=== PATIENT | female | born 1945 | race African-American/Black ===

== ENCOUNTER 2018-02-05 23:16 | Observation (INO) | payer MEDICARE ==
--- NOTE | 2018-02-06 00:40 | PDOC.FPRHP ---
- History of Present Illness Chief Complaint: Chest Pain History of Present Illness: Patient presents with left sided chest pain that began at 2pm this afternoon while driving and eating pork rinds from a gas station along with some chocolate with a lot of peanuts. She was flexing her left arm multiple times to relieve her acid reflux caused by this food. Chest pain left sided and under left breast. Worse with movement, unable to lay down on left side. Alleviated by staying still. Associated with nausea and vomiting multiple times in ED which has improved with zofran. Never had this chest pain before. Denies SOB, palpitations, diarrhea, or current CP. ED Course: GI cocktail, aspirin, zofran - Allergies/Adverse Reactions Allergies Allergy/AdvReac Type Severity Reaction Status Date / Time No Known Drug Allergies Allergy Verified 02/06/18 01:13 - Home Medications Medication Instructions Recorded Confirmed Type Acetaminophen [Tylenol Regular 650 mg PO Q4H PRN tab 02/06/18 Rx Strength] Amlodipine [Norvasc] 5 mg PO DAILY #30 tab 02/06/18 Rx Hydrochlorothiazide 12.5 mg PO DAILY #30 tab 02/06/18 Rx Pantoprazole [Protonix] 40 mg PO DAILY #30 tab 02/06/18 Rx - History PMHx:GERD PSHx: Hysterectomy 1997 FHx: mom- HTN Social: Denies tobacco, alcohol, drug use - Review of Systems General: denies: weight/appetite/sleep changes, fatigue Eyes: denies: eye pain, vision changes Respiratory: denies: cough, shortness of breath Cardiovascular: reports: chest pain. denies: palpitation, edema Gastrointestinal: reports: nausea, vomiting, abdominal pain. denies: diarrhea, constipation Genitourinary: denies: incontinence, dysuria Skin: denies: rashes, lesions Musculoskeletal: reports: pain (L sided chest), tenderness Neurological: denies: syncope, weakness - Vital signs BP: 187/90 HR: 98 RR: 17 Tmax: 98.9 Pox: 97% on RA Wt: 103 kg - Physical Exam Constitutional: NAD, well developed (obese) HEENT: normocephalic and atraumatic, grossly normal hearing, normal nasal mucosa , MMM, oropharynx clear Neck: FROM, trachea midline Chest: other (L sternal border and L lateral ribs TTP) Heart: RRR, normal S1/S2, no edema Lungs: CTAB, no respiratory distress, no rales/rhonchi, no wheezing Abdomen: soft, bowel sounds present, no masses/distention, other (lower abdomen slightly TTP) Musculoskeletal: normal structure, normal tone Neurological: no focal deficit Skin: no rash/lesions, good turgor, capillary refill <2 seconds Heme/Lymphatic: no unusual bruising or bleeding Psychiatric: normal mood and affect FMR H&P: Results - Labs Result Diagrams: 02/06/18 03:21 FMR H&P: A/P - Problem List (1) Atypical chest pain Current Visit: Yes Status: Acute Code(s): R07.89 - OTHER CHEST PAIN (2) Hypertensive urgency Current Visit: Yes Status: Acute Code(s): I16.0 - HYPERTENSIVE URGENCY (3) GERD (gastroesophageal reflux disease) Current Visit: Yes Status: Acute Code(s): K21.9 - GASTRO-ESOPHAGEAL REFLUX DISEASE WITHOUT ESOPHAGITIS - Plan 72 yo F presents with PMH of GERD presents with CC of chest pain, N/V Atypical chest pain - GERD vs MSK pain more likely than cardiac etiology at this time. Pain reproducible with palpation/movement. - no cardiac history, HEART score 3 (age and risk factor) - given ASA in ED. Not given nitro. - troponin neg x2. will trend one more. No EKG changes - Lipids, TSH in am - plan for pharmacologic stress test in am - will hold nsaids at this time for pt's MSK pain. Tylenol prn. Hypertensive urgency - BPs 187/90 on exam. Have been consistently in that range in ED. Nurse reported that upon arrival to floor pt's BP was 240s after activity but quickly decreased back to 180s. No hx of HTN. - considering pulse in 50s and plan for stress test tomorrow, will not give BB - hydralazine prn SBP > 180 - no sign of end organ damage, patient asymptomatic - will repeat BMP in am GERD - pt has hx of GERD - given GI cocktail in [facility], zofran in our ED - zofran prn nausea - protonix Diet: NPO after midnight Ppx: not indicated at this time Dispo: admit to telemetry for observation FMR H&P: Upper Level - Pertinent history 72 yr old AAF presents to outside ER with c/o chest pain. States it started this afternoon around 3-4 pm. She had been driving to [place] to molded goods spot pick[place] her sister. On the way, she ate pork rinds and chocolate candy with peanuts which she thinks flared up her acid reflux as evidenced by left sided pain that was sharp. She then started flexing her LUE and left denson muscles because she has been told this will help relieve gas. She thinks the pain worsened after this and thinks her pain is secondary to sore muscles. In the ER, she began having vomiting. After zofran, improved. She does not note high BP on any of her visits to PCP. Did have annual exam 2 months ago. - Pertinent findings Possible ST depression and new t wave inversion on EKG in lead 3, no ST elevation. Sinus bradycardia, no heart block PE: Gen: NAD, resting in bed Chest: Tender to palpation along sternum stating pain is reproduced Cardiac: RRR, 2/6 systolic murmur in LUSB Lungs: CTAB, no wheezes, rhales, rhonchi - Plan Date/Time: 02/06/18 0040 I, [Ashlee Kerr], have evaluated this patient and agree with findings/plan as outlined by pr internship resident. Pertinent changes/additions are listed here. A/P 72 yr old female with chest pain Atypical chest pain -heart score 3, negative trops -improved except with movement -suspect costochondritis in which case NSAID therapy would be appropriate. -obtain lipid panel for risk stratifying. -order stress for AM- no beta blockers tonight Hypertensive urgency -no end organ damage -obtain repeat EKG -will give PRN hydralazine for SPB> 180 or DBP> 120 -start oral HCTZ GERD -minimal improvement with GI cocktail -start protonix [facility]: [facility] Attending Addendum - Attending Addendum Date/Time: 02/06/18 [id number] I personally evaluated the patient and discussed the management with Dr. Walker. I agree with and repeated the History, Examination, Assessment and Plan documented above with any addition or exceptions noted below.
[2018-02-06 01:04] LABS: Troponin I Less than 0.010 ng/mL (< 0.028)
[2018-02-06] MEDS ORDERED: Ondansetron ODT 4 MG TAB SL PRN ×2 (01:08→02:04)
[2018-02-06] MEDS ORDERED: Ondansetron PF 4 MG/2 ML Vial IVP PRN (01:08)
[2018-02-06 01:19] VITALS: BMI 34.7
[2018-02-06] MEDS ORDERED: Acetaminophen 325 MG TAB PO PRN (01:55)
[2018-02-06] MEDS ORDERED: hydrALAZINE 20 MG/ML VIAL SLOW IVP PRN (02:05)
[2018-02-06 04:09] LABS: Troponin I Less than 0.010 ng/mL (< 0.028)
[2018-02-06 04:16] LABS: Anion Gap 13 mmol/L (10-20); BUN (Urea Nitrogen) 13 mg/dL (9.8-20.1); Calc. Creatinine Clearance 106 mL/min (70-130); Calcium 9.1 mg/dL (7.8-10.44); Carbon Dioxide 22 mmol/L (23-31); Cardiac Risk 2.5 (Less than 4.5); Chloride 108 mmol/L (98-107); Cholesterol 184 mg/dl (< 200 Desired); Estimated GFR-MDRD Greater than 90; Glucose 126 mg/dL (83-110); HDL Cholesterol 74 mg/dL (>60 Neg Risk); LDL Cholesterol, Calculated 104 mg/dL; Potassium 3.8 mmol/L (3.5-5.1); Sodium 139 mmol/L (136-145); Triglycerides 32 mg/dL (Less than 150)
[2018-02-06] MEDS: Hydrochlorothiazide 25 MG TAB PO SCH ×2 (05:50→08:47)
[2018-02-06 07:51] VITALS: TEMP 98.6
[2018-02-06] MEDS ORDERED: Aspirin 325 MG TAB PO SCH (08:00)
[2018-02-06 08:56] LABS: Hemoglobin A1c 5.4 % (4.0-6.0)
[2018-02-06] MEDS ORDERED: Prevnar 13-Val Conj/PF 0.5 ML SYRINGE IM ONE (09:00)
--- NOTE | 2018-02-06 14:46 | NM ---
NUCLEAR MEDICINE STRESS ONLY EXAM: HISTORY: Chest pain. COMPARISON: None. FINDINGS: Stress only exam was performed after the intravenous administration of 28 mCi technetium-99m sestamib i. There is normal left ventricular uptake of radiotracer. No evidence for scar or ischemia. Ejection fr action is normal at 68%. Normal wall motion. IMPRESSION: Normal exam. POS: LESTER
[2018-02-06 15:45] VITALS: BP 130/69
--- NOTE | 2018-02-06 20:38 | DIS-2 ---
DATE OF ADMISSION: 02/06/2018 DATE OF DISCHARGE: 02/06/2018 ADMITTING RESIDENT: Ian Modi. ADMITTING ATTENDING: Will Pearson. DISCHARGE ATTENDING: Will Pearson. CONSULTATIONS: None. PROCEDURES: On 02/06/2018, stress test nuclear medicine. Impression, normal exam. PRIMARY DIAGNOSES: Atypical chest pain secondary to gastroesophageal reflux disease and musculoskeletal strain. SECONDARY DIAGNOSES: Hypertension and gastroesophageal reflux disease. DISCHARGE MEDICATIONS: 1. Acetaminophen 650 mg p.o. q.4 hours p.r.n. 2. Amlodipine 5 mg p.o. daily. 3. Hydrochlorothiazide 12.5 mg p.o. daily. 4. Pantoprazole 40 mg p.o. daily. DISCONTINUED MEDICATIONS: None. HISTORY OF PRESENT ILLNESS AND HOSPITAL COURSE: This is a 72-year-old female with history of GERD who presented to the ED with a several hour history of increasing chest pain, onset was while the patient was driving from [employer]. The patient had recently been snacking on a bag of pork rinds chocolates and almonds and nuts and described and onset of achy substernal chest pain which was worse with movement and alleviated by lying still. Patient had associated nausea and vomiting in the ED. On presentation, EKG was negative. Troponins were negative x3. Patient was admitted for further cardiac workup to rule out acute coronary syndrome. Stress test was done which was negative and the patient had ruled out cardiac causes of chest pain. The patient's blood pressure was initially in the 170s, but resolved to systolic in the 160s with dose of 12.5 mg hydrochlorothiazide and patient did not require p.r.n. medications for hypertensive urgency. The patient was started on hydrochlorothiazide as well as amlodipine 5 mg and deemed safe for discharge, having ruled out cardiac causes of chest pain and was discharged home. DISPOSITION: Stable. LOCATION: Home. DIET: Healthy heart, low sodium. ACTIVITY: As tolerated. Follow up with primary care physician in 10 days. MICHAELA
[2018-02-07] MEDS ORDERED: Amlodipine 5 MG TAB PO SCH (09:00)
--- NOTE | 2018-02-07 17:02 | EKG ---
Test Reason : STAT Blood Pressure : / mmHG Vent. Rate : 053 BPM Atrial Rate : 053 BPM P-R Int : 192 ms QRS Dur : 094 ms QT Int : 442 ms P-R-T Axes : 039 018 030 degrees QTc Int : 414 ms Sinus bradycardia Otherwise normal ECG No previous ECGs available Confirmed by DR. Cisco GREGORIO ([id number]) on 02/07/2018 5:01:52 PM Referred By: Confirmed By:DR. Cisco GREGORIO
== END 2018-02-06 19:40 | disposition home or self-care (01) ==
LOC: ERS 23:16 → 2SW 02-06 00:49
PROVIDERS: ADMIT Emergency Medicine; ATTEND Emergency Medicine
DX: K21.9 Gastro-esophageal reflux disease without esophagitis (principal); R29.898 Other symptoms and signs involving the musculoskeletal system; R07.89 Other chest pain; I16.0 Hypertensive urgency; I10 Essential (primary) hypertension
CPT/HCPCS: 78452; 80048; 80061; 83036; 84443; 84484 ×2; 90670; 93005 ×2; 93017; 96374; 99285; A9500; G0009; G0378 ×2; 36415; 90471; 93010